=== PATIENT | female | born 2000 | race Two or more races ===

== ENCOUNTER 2019-01-03 13:12 | Emergency (ER) | payer SELFPAY ==
[~2019-01-03] VITALS: Ht 172.7 cm; Wt 86.0 kg
[2019-01-03 13:19] VITALS: BP 115/76
--- NOTE | 2019-01-03 15:00 | NUR ---
NA x2 for PIT, N/A in lobby total 3
== END 2019-01-03 15:02 | disposition left against medical advice (07) ==
LOC: EDBD 13:12 → ED 14:56
DX: Z53.21 Procedure and treatment not carried out due to patient leaving prior to being seen by health care provider (principal)